=== PATIENT | female | born 1995 | race Caucasian/White ===

== ENCOUNTER 2018-01-06 00:27 | Emergency (ER) | END 2018-01-06 04:22 | disposition home or self-care (01) ==

== ENCOUNTER 2018-08-30 10:23 | Outpatient (CLI) | END 2018-08-30 14:24 | disposition home or self-care (01) ==

== ENCOUNTER 2018-09-01 08:10 | Inpatient (IN) | END 2018-09-04 15:45 | disposition home or self-care (01) | DRG 806 ==